=== PATIENT | male | born 1975 | race Caucasian/White ===

== ENCOUNTER → 2016-05-03 | Outpatient (CLI) | payer OTHER ==
[~2016-05-03] MED LIST: CARAFATE1 GM PO; NAPROXEN250 MG PO; NO MEDICATIONS; PROTONIX PO
== END | disposition home or self-care (01) ==
LOC: CLAB 08:59
DX: R10.9 Unspecified abdominal pain (principal)
CPT/HCPCS: 36415; 86677

== ENCOUNTER → 2016-05-18 | Day surgery (SDC) | payer OTHER ==
--- NOTE | ~2016-05-18 | OR ---
Unit #: [id number] #: [id number] Patient: CHULA LIDNER [id number] [facility] [address]. [place], [place] [address] [id number] O MR#: [id number] NAME: CHULA LINDER ROOM: Date of Procedure: 05/18/2016 Admission Date: 05/18/2016 Surgeon: Paul Srinivasan M.D. : 1975 Attending Physician: Palu Srinivasan M.D. Primary Care Physician: Keshawn Canseco M.D. OPERATIVE REPORT PREOPERATIVE DIAGNOSIS Right upper quadrant pain, possible hernia. POSTOPERATIVE DIAGNOSIS Right upper quadrant pain, possible hernia. PROCEDURES PERFORMED Diagnostic laparoscopy, laparoscopic lysis of adhesions, laparoscopic ventral hernia repair with 8 cm Ventralex mesh. ANESTHESIA General endotracheal anesthesia. ESTIMATED BLOOD LOSS Less than 20 mL. INDICATIONS FOR PROCEDURE Mr. Linder is a 41-year-old gentleman, who had a laparoscopic cholecystectomy well over a year ago. He has been doing well except for some intermittent severe point tenderness in the right upper quadrant just medial to his epigastric trocar site. On physical examination, I could not appreciate a hernia, but full evaluation failed to reveal any other cause for his discomfort. We plan on doing a diagnostic laparoscopy to rule out an incarcerated trocar site hernia or an incarcerated congenital hernia of the falciform ligament. DESCRIPTION OF PROCEDURE The patient was admitted to [facility], positively identified, transported to the operating room, and after induction of general endotracheal anesthesia, he received antibiotics IV and was prepped and draped in usual sterile fashion. A 5-mm infraumbilical incision was made. Veress needle was placed. Pneumoperitoneum was created. Then, a 5-mm trocar was placed. Laparoscope was introduced in the peritoneal cavity. In the right upper quadrant, there was a lot of scarring to the anterior abdominal wall, liver edge, and along the falciform ligament. In the left upper quadrant, a 5-mm trocar was placed. In the right upper quadrant, two 5-mm trocars were placed. All the adhesions were taken down by sharp and cautery dissection and we freed up everything in the right upper quadrant. The falciform ligament was then taken down and after the ligament was taken down and all the fatty tissues stripped from the underlying fascia, a small hernia was identified right at the site where he had his point tenderness. An 8 cm Ventralex patch Unit #: [id number] #: [id number] Patient: CHULA LINDER was placed in the peritoneal cavity with stay suture. Using an Endo Close device, the mesh was pulled up against the anterior abdominal wall and it was secured circumferentially with a SecureStrap stapling device. Once this was patched, we ensured there was good hemostasis. No other findings were noted in the abdomen. The pneumoperitoneum was reduced as we removed laparoscope and trocars. A 0.5% Marcaine with epinephrine was infiltrated into each trocar site. The skin was closed with sterile skin filiberto and dry sterile bandages. The sponges and needle counts were correct x3. The patient tolerated the procedure well and was transported to the recovery in stable condition. Findings and postoperative instructions were discussed with his . Dictated by... Stanley Collier/pascale TD: 05/19/2016 03:07 JOB #: [id number] OPERATIVE REPORT Page 1 of 1 X Paul Srinivasan MD PROCEDURE OPERATIVE NOTE
--- NOTE | ~2016-05-18 | EKG ---
PATIENT: CHULA MONTIEL UNIT #: [id number] Ventricular Rate: 80 BPM Atrial Rate: 80 BPM P-R Interval: 176 ms QRS Duration: 92 ms Q-T Interval: 370 ms QTC Calculation(Bezet): 426 ms P [place]: 65 degrees Calculated R [place]: 67 degrees Calculated T [place]: 46 degrees Diagnosis Line: Normal sinus rhythm Diagnosis Line: Normal ECG Diagnosis Line: No previous ECGs available Diagnosis Line: Confirmed by MUNA CABAN MD ([id number]) on 05/19/2016 Diagnosis Line: 9:14:35 PM INTERPRETING MD: MEE BECKFORD
[2016-05-18 09:49] LABS: HEMOGLOBIN 14.5 gm/dL (13.0-16.0); MEAN CELL VOLUME 87.3 FL (83-96); MEAN CORPUSCULAR HEMOGLOBIN 30.1 PG (28-34); MEAN CORPUSCULAR HGB CONC 34.5 g/dL (30-36); RED BLOOD COUNT 4.81 X10e (3.90-5.60); RED CELL DISTRIBUTION WIDTH 13.3 % (11.0-15.5); WHITE BLOOD COUNT 5.5 X10e3 (4.0-10.5)
[2016-05-18 10:24] LABS: CREATININE SERUM 1.1 mg/dL (0.6-1.4); GLOM FILT RATE Estimated 82.4 mL/min (>60); POTASSIUM 3.8 mmol/L (3.5-5.1)
== END | disposition home or self-care (01) ==
LOC: CSUR 08:56
PROVIDERS: Specialist
DX: K43.9 Ventral hernia without obstruction or gangrene (principal); N40.0 Benign prostatic hyperplasia without lower urinary tract symptoms; G89.29 Other chronic pain; Z87.19 Personal history of other diseases of the digestive system; Z87.01 Personal history of pneumonia (recurrent); Z90.49 Acquired absence of other specified parts of digestive tract; Z88.6 Allergy status to analgesic agent; Z79.899 Other long term (current) drug therapy
CPT/HCPCS: 80048; 85027; 93005; J0131; J0330; J0690; J1100; J1170; J1885; J2405; J3010